=== PATIENT | female | born 1960 ===

== ENCOUNTER 2022-03-28 08:45 | Inpatient (IN) | payer OTHER ==
[~2022-03-28] VITALS: Ht 162.6 cm; Wt 67.6 kg
[2022-03-28] MEDS ORDERED: SYNTHROID75 MCG PO (12:14)
[2022-04-04] MEDS ORDERED: XARELTO10 MG PO (06:37)
[2022-04-04] MEDS ORDERED: OXYC1TAB9 PO (06:37)
[2022-04-04] MEDS ORDERED: INTEGRA PLUS C1 EACH PO (06:37)
[2022-04-04] MEDS ORDERED: BACTRIM DS TAB1 EACH PO (06:37)
== END 2022-04-04 14:55 | DRG 470 ==
LOC: ADM 08:45 → SURH 04-02 08:45 → CIR.AMB 04-02 08:45 → EDBD 04-02 08:45 → EDSTATUS 04-02 08:45 → SURH 04-02 09:12 → O/R 04-02 09:12 → SURH 04-02 14:15
PROVIDERS: ADMIT Orthopaedic Surgery Sports Medicine; ATTEND Orthopaedic Surgery Sports Medicine
PROC: 0SRC0J9 Replacement of Right Knee Joint with Synthetic Substitute, Cemented, Open Approach (ICD-10-PCS; principal; 2022-04-02 14:30)
DX: M17.11 Unilateral primary osteoarthritis, right knee (principal); Z20.822 Contact with and (suspected) exposure to COVID-19